=== PATIENT | female | born 1965 | race Caucasian/White ===

== ENCOUNTER 2017-07-26 20:53 | Observation (INO) | payer MEDICAID ==
[~2017-07-26] VITALS: Ht 161.3 cm; Wt 68.5 kg
--- NOTE | ~2017-07-26 | OP ---
PATIENT NAME: MARTINE PARKER MEDICAL RECORD: [id number] :65 LOCATION:D.M2 D.2116 ADMISSION DATE:07/26/17 SURGEON: SHANTE LONGROIA MD DATE OF OPERATION: 07/27/2017 PROCEDURES: 1. Left heart catheterization. 2. Selective coronary angiography. 3. Left ventriculogram. INDICATION: Chest pain and non-Q-wave myocardial infarction. PROCEDURE IN DETAIL: After informed consent was obtained and after a detailed description of risks, benefits as well as alternative therapies, the patient elected to proceed with angiogram and heart catheterization. The right femoral area was prepped and draped in normal sterile fashion. Right femoral artery was cannulated via modified Seldinger technique with placement of 5-Bulgarian sheath. All catheters exchanged through this sheath. FINDINGS: Left ventriculogram was performed in standard 30-degree WILSON view, reveals good cardiac wall motion throughout all segments. Overall ejection fraction estimated 60%. SELECTIVE CORONARY ANGIOGRAPHY: Left main, left anterior descending, left circumflex, right coronary artery are all smooth-walled vessels with no angiographic evidence of coronary artery disease. OVERALL IMPRESSION: 1. No angiographic evidence of coronary artery disease. 2. Normal left heart pressures. 3. Normal left ventricular systolic function. In the past, she has been told that her chest pain and myocardial infarction is secondary to vasospasm. This must be the case as there is no fixed obstructive disease. We will center medical management and treatment of the vasospasm. TRANSINT:[id number] Voice Confirmation ID: [id number] DOCUMENT ID: [id number] SHANTE LONGORIA MD at 1630 CC: [id number] DICTATION DATE: 07/27/17 0956 BRIDGE CREW MEMBER: 07/27/17 1156 DIS IN 07/27/17 [facility] [address] [place] [address]
--- NOTE | ~2017-07-26 | CN ---
PATIENT NAME:MARTINE SEGAL MEDICAL RECORD: [id number] : 65 LOCATION:D.[place] D.2116 ADMIT DATE: 07/26/17 ACCOUNT: [id number] CONSULTING PHYSICIAN: SHANTE LONGORIA MD REFERRING PHYSICIAN: EM BARRIENTOS MD DATE OF CONSULTATION: 07/27/2017 DIAGNOSES: 1. Elevated troponin. 2. Previous myocardial infarction. HISTORY OF PRESENT ILLNESS: Mrs. Segal started having chest pain in April. She was told at [facility] she had a heart attack then. Angiogram revealed no significant blockage. She was treated for vasospasm. She was initially on a full Imdur tablet 30 mg; however, cannot tolerate this secondary to headache. This was cut in half. She was as well placed on carvedilol. She has continued to have episodes of chest pain and they have escalated. Her troponin is once again positive. Her EKG is with ST-T abnormalities inferolaterally. PHYSICAL EXAMINATION: GENERAL APPEARANCE: Well-nourished, well-developed, appears stated age. Level of distress, comfortable. PSYCHIATRIC: Mental status, alert, normal affect. Orientation, oriented to time, place and person. EYES: Lids and conjunctiva, noninjected. No discharge, no pallor. ENT: Lips, teeth, gums, normal dentition. Oropharynx, no cyanosis, no pallor. NECK: Carotid arteries, bilateral normal upstroke, no bruits, no thrills. JUGULAR VEINS: No jugular venous pressure or distention. CERVICAL LYMPH NODES: Nontender, nonenlarged. THYROID: Not enlarged. Nontender. No nodules. LUNGS: Respiratory effort, unlabored. CHEST: Normal curvature. No thoracic deformity. No chest wall tenderness. Percussion, resonant. Auscultation, clear. No wheezes, no rales, no rhonchi. CARDIOVASCULAR: Precordial exam, nondisplaced. No heaves or pericardial thrills. Rate and rhythm, regular. Heart sounds, normal S1, normal S2. No S3, no gallop, no rub. Systolic murmur, not heard. Diastolic murmur, not heard. EXTREMITIES: No cyanosis, no edema. Peripheral pulses, full and equal in all extremities, except as noted. No bruits appreciated. ABDOMEN: Soft, nondistended. Normal aorta. No bruit. Nontender. No masses. Liver, nontender, no hepatomegaly. Spleen, nontender, no splenomegaly. MUSCULOSKELETAL: No joint tenderness. No joint swelling. No erythema. NEUROLOGICAL: Normal gait, normal strength, normal tone. SKIN: Warm and dry. OVERALL IMPRESSION: Recurrent myocardial infarction, hard to believe that this is purely vasospasm. Will repeat coronary angiography. Further care depends upon findings of the angiography. If this truly is vasospasm and she cannot tolerate the nitrate, we will try a nitropatch as well as Norvasc in its place. TRANSINT:[id number] Voice Confirmation ID: [id number] DOCUMENT ID: [id number] CONSULT REPORT [id number] MARTINE SEGAL JEFFREY MD at 1629 CC: [id number] DICTATION DATE: 07/27/17 0758 STANDARD MACHINE STITCHER: 07/27/17 1147 DIS IN 07/27/17 [facility] [address] [place] [address]
--- NOTE | ~2017-07-26 | HEMODYNAMI ---
PATIENT:MARTINE PARKER MEDICAL RECORD: [id number] : 65 [facility]# [id number] ADMISSION DATE: 07/26/17 Generatedon:07/27/20179:57 Patient name: MARTINE PARKER Patient #: [id number] SSN: : 1965 Date of study: 07/27/2017 Page: Of Hemodynamic Procedure Report Patient Data Patient Demographics Procedure consent was obtained First Name: MARTINE Gender: Female Last Name: KEITH : 1965 Middle Initial: D Age: 51 year(s) Patient #: [id number] Race: Unknown Additional ID: [id number] Contact details Address: [address] [place] [address] State: [place] City: [place] Zip code: [address] Past Medical History Allergies: No known allergies Admission Admission Data Admission Date: 07/26/2017 Admission Time: 21:30 Room #: D.2116 Lab Results Lab Result Date: 07/27/2017 Lab Result Time: 4:10 Biochemistry Name Units Result Min Max BUN mg/dl 12 --(-*--)-- 7 18 Creatinine mg/dl 0.8 --(-*--)-- 0.6 1.3 CBC Name Units Result Min Max Hematocrit % 36.7 *-(----)-- 42 54 Hemoglobin g/dl 11.8 *-(----)-- 13.5 17.5 Procedure Procedure Types Cath Procedure Diagnostic Procedure LHC LHC w/Coronaries Procedure Description Procedure Date Procedure Date: 07/27/2017 Procedure Start Time: 9:46 Procedure End Time: 9:56 Procedure Staff Name Function Chris Ford MD Performing Physician Nakia Caceres RT Monitor Javier Webster RT Scrub Nancy Salvador RN Nurse Procedure Data Cath Procedure Fluoroscopy Diagnostic fluoroscopy Total fluoroscopy Time: 0.8 time: 0.8 min min Diagnostic fluoroscopy Total fluoroscopy dose: 345 dose: 345 mGy mGy Contrast Material Contrast Material Type Amount (ml) Isovue 370 54 Entry Location Entry Primary Successful Side Size Upsize Upsize Entry Closure Succes sful Closure Location (Fr) 1 (Fr) 2 (Fr) Remarks Device Remarks Femoral Right 5 Fr Exoseal artery Estimated blood loss: 5 ml Diagnostic catheters Device Type Used For End Catheter Placement MULTIPACK Pigtail 5 Fr LV Angiography catheter MULTIPACK JL 4.0 5Fr Left Coronary catheter Angiography MULTIPACK 3DRC 5Fr Right Coronary catheter Angiography Procedure Complications No complications Procedure Medications Medication Administration Route Dosage Oxygen NC 2 l/min Lidocaine 2% added to field 20 Heparin Flush Bag added to field 2 bags (1000units/500ml NS) 0.9% NaCl I.V. 100 ml/hr Versed I.V. 1 mg Fentanyl I.V. 50 mcg Versed I.V. 1 mg Fentanyl I.V. 50 mcg Hemodynamics Rest HGB: 11.8 (g/dl) Heart Rate: 66 (bpm) Snapshots Pre Cath Intra NCS Post Cath Vital Signs Time Heart Resp SPO2 etCO2 NIBP Rhythm Pain Sedation Rate (ipm) (%) (mmHg) (mmHg) Status Level (bpm) 9:37:10 58 18 100 0 136/64(97) NSR 0 (11) 10(A) , No pain 9:41:55 64 16 100 0 143/66(95) NSR 0 (11) 10(A) , No pain 9:46:38 58 15 99 42.1 123/60(91) NSR 0 (11) 9(A) , No pain 9:51:19 65 16 98 43.6 127/62(83) NSR 0 (11) 9(A) , No pain 9:56:01 59 15 98 43.6 116/55(85) NSR 0 (11) 10(A) , No pain Medications Time Medication Route Dose Verified Delivered Reason Notes Effec tiveness by by 9:40:04 Oxygen NC 2 Chris Mattsonie used for l/min Logan Salvador RN procedure 9:40:11 Lidocaine 2% added 20ml Chris Perez for local to vial Logan Ford MD anesthetic field 9:40:17 Heparin Flush added 2 Chrisabhijit Perez used for Bag to bags Logan Ford MD procedure (1000units/500ml field NS) 9:40:31 0.9% NaCl I.V. 100 Chris Buffie Per ml/hr Logan Salvador RN physician 9:43:44 Versed I.V. 1 mg Chris Cruz for Logan Salvador RN sedation 9:43:50 Fentanyl I.V. 50 Chris Cruz for mcg Logan Salvador RN sedation 9:48:02 Fentanyl I.V. 50 Chris Cruz for mcg Logan Salvador RN sedation 9:48:59 Versed I.V. 1 mg Chris Cruz for Logan Salvador RN sedation Procedure Log Time Note 9:25:03 Informed consent obtained and on chart 9:25:20 Diagnostic Cath status Elective 9:25:21 Nancy Salvador RN sent for patient. Start room use. 9:25:22 Time tracking: Regular hours (M-F 7:00 - 5:00) 9:25:25 Plan of Care:Hemodynamics will remain stable., Cardiac rhythm will remain stable., Comfort level will be maintained., Respiratory function will remain adequate., Patient/ family verbilizes understanding of procedure., Procedure tolerated without complication., Recovers from procedure without complications.. 9:25:58 Lab Result : BUN 12 mg/dl 9:25:58 Lab Result : Hemoglobin 11.8 g/dl 9:25:58 Lab Result : Creatinine 0.8 mg/dl 9:25:58 Lab Result : Hematocrit 36.7 % 9:26:01 Lab results completed and on chart. 9:30:43 Patient received from Med II to CCL 1 Alert and oriented. Tansferred to table in Supine position. 9:30:43 Warm blankets applied, and milton hugger turned on for patient comfort. 9:30:44 Correct patient and procedure confirmed by team. 9:30:44 ECG and BP/O2 sat monitors applied to patient. 9:30:45 Pre-procedure instructions explained to patient. 9:30:46 Pre-op teaching completed and patient verbalized understanding. 9:36:17 Vital chart was started 9:36:22 Baseline sample Acquired. 9:36:25 Rhythm: sinus rhythm 9:36:26 Full Disclosure recording started 9:37:49 Baseline sample Acquired. 9:38:50 H&P Date Dictated: 07/27/2017 New H&P dictated by physician.. 9:39:31 Family in patients room. 9:39:32 Patient NPO since Midnight. 9:39:38 Patient allergic to No known allergies 9:39:40 Is the patient allergic to Iodine/contrast media? No. 9:39:41 Is patient on blood thinner?Yes 9:39:44 ACC The patient was administered the following blood thiners within the last 24 hours: ACCPlavix 9:39:46 Patient diabetic? No. 9:39:52 Previous problem with sedation/anesthesia? No ? 9:39:54 Snore? Yes 9:40:00 Sleep apnea? No 9:40:01 Deviated septum? No 9:40:02 Opens mouth fully? Yes 9:40:03 Sticks out tongue? Yes 9:40:04 Oxygen 2 l/min NC was administered by Nancy Salvador RN; used for procedure; 9:40:05 Airway obstruction? No ? 9:40:08 Dentures? Yes In 9:40:11 Lidocaine 2% 20ml vial added to field was administered by Chris Ford MD; for local anesthetic; 9:40:13 Pre procedure: right dorsailis pedis pulse 2+ Normal; easily identifiable; not easily obliterated 9:40:17 Heparin Flush Bag (1000units/500ml NS) 2 bags added to field was administered by Chris Ford MD; used for procedure; 9:40:29 Pre procedure: right radial pulse 1+ Palpable, but thready & weak; easily obliterated 9:40:31 0.9% NaCl 100 ml/hr I.V. was administered by Nancy Salvador RN; Per physician; 9:40:33 Patient pain scale 0/10 ?. 9:40:40 IV patent on arrival in right forearm with 0.9% NaCl at [facility]. 9:40:46 Right groin area was prepped with chlora-prep and draped in sterile fashion 9:40:47 Alarms reviewed by R. N. 9:40:48 Sharps counted by scrub and verified by R.N. 9:42:38 Final Timeout: patient, procedure, and site verified with staff and physician. All members of the team are in agreement. 9:42:40 Right groin site verified by team. 9:42:42 Physical assessment completed. ASA score P 2 - A patient with mild systemic disease as per Chris Ford MD. 9:42:45 Sedation plan: IV Moderate Sedation Medication:Versed, Fentanyl 9:43:44 Versed 1 mg I.V. was administered by Nancy Salvador RN; for sedation; 9:43:50 Fentanyl 50 mcg I.V. was administered by Nancy Salvador RN; for sedation; 9:45:53 Use device set Femoral Dx 9:45:57 Procedure started. 9:46:00 Local anesthetic to right femoral artery with Lidocaine 2% by Chris Ford MD.INITIAL ACCESS ONLY 9:46:08 A 5 Fr sheath was inserted into the Right Femoral artery 9:46:11 Zero performed for pressure channel P1 9:46:16 Zero performed for pressure channel P1 9:46:23 Bag Decanter (2002S) opened to sterile field. 9:46:23 ACIST Syringe (44191) opened to sterile field. 9:46:24 Medline Cath Pack ([id number]) opened to sterile field. 9:46:24 DIAGNOSTIC WIRE .035 260cm J wire (225620) opened to sterile field. 9:46:25 ACIST Hand Control (18744) opened to sterile field. 9:46:26 ACIST Manifold (72128) opened to sterile field. 9:46:26 DIAGNOSTIC Multipack 5Fr catheter set ([id number]) opened to sterile field. 9:46:27 Tegaderm 4 x 4 (1626W) opened to sterile field. 9:46:28 PERCUTANEOUS ENTRY 19GA needle opened to sterile field. 9:46:28 SHEATH Prelude 5Fr 0.035 ([id number]-1J-24-035) opened to sterile field. 9:46:38 A MULTIPACK Pigtail 5 Fr catheter was advanced over the wire and used for LV Angiography. 9:47:01 LV gram done using WILSON 9:47:04 Injector settings: Ml/sec: 10, Volume: 20, 9:47:06 Catheter removed. 9:47:44 A MULTIPACK JL 4.0 5Fr catheter was advanced over the wire and used for Left Coronary Angiography. 9:48:02 Fentanyl 50 mcg I.V. was administered by Nancy Salvador RN; for sedation; 9:48:59 Versed 1 mg I.V. was administered by Nancy Salvador RN; for sedation; 9:49:20 Catheter removed. 9:49:34 A MULTIPACK 3DRC 5Fr catheter was advanced over the wire and used for Right Coronary Angiography. 9:50:03 Catheter removed. 9:50:32 EXOSEAL 5Fr (EX500) opened to sterile field. 9:50:41 Sheath removed intact; hemostasis achieved with Exoseal to the Right Femoral artery. 9:50:43 Procedure ended.(Physican Out) 9:52:07 Fluoroscopy time 00.80 minutes. 9:52:11 Fluoroscopy dose: 345 mGy 9:52:11 Flurop Dose total: 345 9:52:16 Contrast amount:Isovue 370 54ml. 9:52:19 Sharps counted by scrub and verified by R.N. 9:52:21 Insertion/operative site no bleeding no hematoma. 9:52:27 Post-op/insertion site Right Femoral artery dressed using a 4 x 4 and Tegaderm. 9:52:32 Post right femoral artery:stable, clean and dry 9:54:07 Post Procedure Pulses reassessed and unchanged 9:54:10 Post-procedure physical assessment completed. ASA score P 2 - A patient with mild systemic disease as per Chris Ford MD. 9:54:13 Post procedure rhythm: sinus rhythm 9:54:16 Estimated blood loss: 5 ml 9:54:17 Post procedure instruction explained to patient.Patient verbalizes understanding. 9:54:18 Patient needs reinforcement of post procedure teaching. 9:54:27 Procedure and supply charges have been captured, reviewed, submitted and are correct. 9:54:31 Procedure Complication : No complications 9:54:33 See physician's report for complete and final results. 9:56:38 Vital chart was stopped 9:56:41 Report given to PCU. 9:56:44 Patient transfered to PCU with Bed. 9:56:53 Procedure ended. 9:56:53 Full Disclosure recording stopped 9:56:58 End room use (Document Last) Device Usage Item Name Manufacture Quantity Catalog Number Hospital Part Current M inimal Lot# / Charge Number Stock Stock Serial# Code Bag Decanter Microtek 1 [id number] 5 () Medical Inc. ACIST Syringe Acist 1 12119 559613 942442 880090 2 0 (16572) [employer] Medline Cath Cardinal 1 [id number] 416747 15881 109907 5 iXpert ([id number]) DIAGNOSTIC WIRE [facility] 1 670235 458631 200802 303010 3 0 .035 260cm J wire (199719) ACIST Hand Acist 1 48782 339598 443675 653460 5 Control (56549) [employer] ACIST Manifold Acist 1 88042 332716 209161 815924 5 (38203) [employer] Inc DIAGNOSTIC Cardinal 1 [id number] 325920 24666 796287 3 0 Multipack 5Fr Health catheter set ([id number]) Tegaderm 4 x 4 3M 1 1626W 173100 283724 855521 5 (1626W) PERCUTANEOUS Cook Medical 1 M82125 937733 056117 5 ENTRY 19GA needle SHEATH Prelude Merit 1 [id number]-2A-22-035 722157 956945 126705 5 5Fr 0.035 Medical ([id number]-6E-37-035) MULTIPACK Cardinal 1 101011 5 Pigtail 5 Fr Health catheter MULTIPACK JL Cardinal 1 [id number] 5 4.0 5Fr Health catheter MULTIPACK 3DRC Cardinal 1 664678 5 5Fr catheter Health EXOSEAL 5Fr Cardinal 1 EX500 880736 022510 445581 1 0 (EX500) Health Signature Audit [place] Stage Time Signature Unsigned Intra-Procedure 07/27/2017 Nakia 9:57:09 AM Counts RT(R) Signatures Monitor : Nakia Signature : Counts RT Date : Time : [address] [id number]
[2017-07-26 22:37] VITALS: BP 130/59; BMI 26.4
[2017-07-26] MEDS ORDERED: IBUPROFEN800 MG PO (23:35)
[2017-07-26] MEDS ORDERED: COREG 3.1253.125 MG PO (23:36)
[2017-07-26] MEDS ORDERED: LIPITOR10 MG PO (23:37)
[2017-07-26] MEDS ORDERED: ISOSORBIDE MONO30 M1 PO (23:38)
[2017-07-26] MEDS ORDERED: NITROQUICK0.4 MG SL (23:39)
[2017-07-27 01:02] VITALS: BP 127/45
[2017-07-27 05:09] LABS: BASOPHILS 0.2 % (0-2); EOSINOPHILS 0.3 % (0-7); HEMATOCRIT 36.7 % (36.0-48.0); HEMOGLOBIN 11.8 g/dL (12-16); IMMATURE GRANULOCYTES 0.2 % (0-5); LYMPHOCYTES 13.1 % (15-50); MCH 29.5 pg (26.0-34.0); MCHC 32.2 g/dL (31.0-37.0); MCV 91.8 fL (80.0-100.0); MEAN PLATELET VOLUME 11.7 fL (7.4-10.4); MONOCYTES 11.9 % (2-11); NEUTROPHILS 74.3 % (40-80); PLATELET COUNT 96 10x3/uL (130-400); RDW 13.4 % (11.5-14.5); WBC 13.2 10x3/uL (4.8-10.8)
[2017-07-27 05:31] VITALS: BP 115/46
[2017-07-27 06:15] LABS: CALC OSMOLALITY 282 mosm/kg (275-300); CALCIUM 8.2 mg/dL (8.5-10.1); CARBON DIOXIDE 27.6 mmol/L (21.0-32.0); CHLORIDE - SERUM 105 mmol/L (98-107); CKMB 0.6 U/L (0.0-3.6); CREATINE KINASE 36 UL (21-215); CREATININE - SERUM 0.8 mg/dL (0.6-1.3); GLUCOSE 126 mg/dL (74-106); SODIUM 141 mmol/L (136-145); UREA NITROGEN 12 mg/dL (7-18); eGFR NON AFRICAN AMERICAN 80 mL/min (90-120)
[2017-07-27 06:16] LABS: TROPONIN-I 0.106 ng/mL (0.000-0.060)
[2017-07-27 08:29] VITALS: BP 123/56
[2017-07-27] MEDS ORDERED: NITRO-DUR0.2 MG TRANSDERM (13:57)
[2017-07-27] MEDS ORDERED: NORVASC2.5 MG PO (13:57)
[2017-07-27 14:33] VITALS: Ht 161.3 cm; Wt 68.5 kg
[2017-07-27 15:44] VITALS: BP 129/56
== END 2017-07-27 18:00 | disposition home or self-care (01) ==
LOC: D.M2 20:53 → OBSVTIME 21:30 → D.M2 21:30
PROVIDERS: Internal Medicine Interventional Cardiology
DX: I21.4 Non-ST elevation (NSTEMI) myocardial infarction (principal); K21.9 Gastro-esophageal reflux disease without esophagitis; I20.1 Angina pectoris with documented spasm; I25.2 Old myocardial infarction